=== PATIENT | female | born 1970 | race Asian ===

== ENCOUNTER 2025-06-28 09:23 | Day surgery (SDC) | payer OTHER, SELFPAY ==
--- NOTE | 2025-06-28 06:45 | P.HP_ITS ---
History of Present Illness
--- NOTE | 2025-06-28 06:45 | PM.HP.IH.1 ---
History of Present Illness History of Present Illness Date Patient Seen: 06/28/25 Time Patient Seen: 06:45 Chief complaint: Colonoscopy Narrative: 55yo F presents for screening colonoscopy. Meds Home Medications and Allergies Home Medications ?Medication ?Instructions ?Recorded ?Confirmed ?Type sodium,potassium,mag sulfates 17.5 See Rx Instructions PO .COMPLEX 05/22/25 Rx gram-3.13 gram-1.6 gram oral soln #354 mL (Suprep Bowel Prep Kit) Exam Narrative Exam Narrative: Const General: comfortable Orientation: alert and oriented x3 Resp Effort & Inspection: normal respiratory effort and able to speak in complete sentences Cardio Rate: regular rate GI Palpation: soft (NT) Extrem General: no pedal edema and no calf tenderness Assessment & Plan Assessment and plan (1) Encounter for screening colonoscopy: Status: Acute Plan Plan screening colonoscopy, possible biopsy. The risks, benefits and options regarding the procedure were explained to the patient in detail. Risk discussion included but not limited to: bleeding, perforation, missed lesion, unable to reach cecum. The patient was encouraged to ask questions and they were answered to their satisfaction. The patient understands and is agreeable to proceed. Time-Based Coding :: [TOTAL MINUTES] spent with patient and on the chart (including review of chart, obtaining history, exam, reviewing outside data, placing orders, documenting exam and treatment plan, and counseling patient) on [DATE]. [employer] Document charge(s): Yes Charge Codes Inpatient/observation care including admit and discharge same day: [id number]
[2025-06-28 10:06] VITALS: BP 123/83; PULSE 88; RESP 16; TEMP 36.5; O2SAT 96
[2025-06-28] MEDS: LACTATED RINGERS 1,000 ML 84 ML IV (10:14)
--- NOTE | 2025-06-28 11:19 | P.OP.COLON_ITS ---
Operative Date/Time/Diagnoses
--- NOTE | 2025-06-28 11:19 | PM.OP.COLON ---
Operative Date/Time/Diagnoses Date of procedure: 06/28/25 Time of procedure: 11:36 Pre-op diagnosis: Screening colonoscopy Post-op diagnosis: other (Diverticulosis, internal hemorrhoids) Procedure & Clinicians Study performed: Screening colonoscopy Same procedure(s) as scheduled: Yes Indications: 55yo F, first screening colonoscopy Surgeon: Eliseo Leary Anesthesia Type: MAC +/- Procedure Notes SCOAP/Timeout: Performed Procedure in detail: Colonoscopy Patient placed in left lateral recumbent position. Time out was performed. Procedural sedation was administered by anesthesia. Examination began with a thorough inspection of the perianal area. There was no evidence of fissures, fistulae, external hemorrhoids or cutaneous malignancy. The colonoscope was then placed into the rectum and the lumen was insufflated with carbon dioxide. The scope was carefully advanced forward. Ultimately the cecum was intubated and confirmed by identification of the ileocecal valve, the appendiceal orifice and the confluence of the taenia. The scope was then slowly withdrawn examining the colon thoroughly in all directions. In the rectum, retroflexion of the scope was performed for inspection of the distal rectum and anal canal. ?Significant colonoscopy findings: ?1. Quality of the preparation-good, [place] 2-3, improved with irrigation/suction ?2. No polyps, mass, stricture 3. Few scattered diverticulae in sigmoid and throughout colon 4. Internal hemorrhoids, small Scope withdrawal time: 6 cm Findings: divertiulosis and internal hemorrhoids Specimen(s): none sent Estimated Blood Loss: 5 Complications: none Post-procedure Recommendations: Colonoscopy in 10 years Plan for aftercare: PACU then home Follow up: as needed Disposition: PACU
[2025-06-28 11:37] VITALS: BP 98/78; PULSE 88; RESP 16; TEMP 36.2; O2SAT 94
[2025-06-28 11:45] VITALS: BP 105/74; PULSE 78; RESP 16; TEMP 36.2; O2SAT 98
[2025-06-28 11:50] VITALS: BP 102/60; PULSE 91; RESP 16; TEMP 36.2; O2SAT 100
== END 2025-06-28 12:05 | disposition home or self-care (01) ==
PROVIDERS: Referring Provider Surgery; Visit Provider Surgery
PROC: 0DJD8ZZ Inspection of Lower Intestinal Tract, Via Natural or Artificial Opening Endoscopic (ICD-10-PCS; CPT 45378; principal; 2025-06-28 10:45)
DX: Z12.11 Encounter for screening for malignant neoplasm of colon (principal); K57.30 Diverticulosis of large intestine without perforation or abscess without bleeding; K64.8 Other hemorrhoids
CPT/HCPCS: 45378; J2704; J7120